=== PATIENT | female | born 1960 | race African-American/Black ===

== ENCOUNTER → 2016-09-29 | Outpatient (CLI) | payer OTHER ==
[~2016-09-29] MED LIST: ASPIRIN EC325 M1 PO; BACTRIM DS TAB1 EACH PO; BENICAR HCT 401 EACH PO; CIPRO500 MG PO; DIOVAN 80 MG TA80 M1 PO; FLAGYL500 MG PO; IBUPROFEN 800800 MG PO; LIPITOR 10 MG10 M1 PO; LIPITOR10 MG PO; NORCO 5-325 TA1 EACH PO; NORFLEX100 MG PO; ONDANSETRON HCL4 M2 PO; PEPCID AC20 M1 PO; PERCOCET 5-3251 EACH PO; TRAMADOL 50 MG50 MG PO; UNKNOWN BP MED; ZOFRAN ODT4 MG PO; [UNRECOGNIZED DRUG - REMARK]
== END ==
LOC: RAD 12:41
DX: R07.9 Chest pain, unspecified (principal)

== ENCOUNTER → 2017-02-28 | Outpatient (CLI) | payer OTHER | LOC: RAD 10:35 | DX: Z12.31 Encounter for screening mammogram for malignant neoplasm of breast (principal) ==

== ENCOUNTER → 2017-05-25 | Outpatient (CLI) | payer OTHER | LOC: RAD 15:59 | DX: M51.36 Other intervertebral disc degeneration, lumbar region (principal); M43.16 Spondylolisthesis, lumbar region; M46.86 Other specified inflammatory spondylopathies, lumbar region; M25.78 Osteophyte, vertebrae ==

== ENCOUNTER → 2017-12-28 | Outpatient (CLI) | payer OTHER | LOC: RAD 14:21 | DX: Z12.31 Encounter for screening mammogram for malignant neoplasm of breast (principal); I10 Essential (primary) hypertension; E78.5 Hyperlipidemia, unspecified ==

== ENCOUNTER → 2019-05-29 | Outpatient (CLI) | payer OTHER | LOC: RAD 14:32 | DX: Z12.31 Encounter for screening mammogram for malignant neoplasm of breast (principal); N63.10 Unspecified lump in the right breast, unspecified quadrant ==

== ENCOUNTER → 2019-07-01 | Outpatient (CLI) | payer OTHER | LOC: ULTRA 12:38 | PROVIDERS: ATTEND Nurse Practitioner | DX: N64.89 Other specified disorders of breast (principal) ==

== ENCOUNTER → 2019-08-04 | Outpatient (CLI) | payer OTHER | LOC: SJCVCIMAG 12:09 | DX: R07.9 Chest pain, unspecified (principal); I10 Essential (primary) hypertension; E78.00 Pure hypercholesterolemia, unspecified; E11.9 Type 2 diabetes mellitus without complications; R53.83 Other fatigue ==

== ENCOUNTER → 2019-11-25 | Outpatient (CLI) | payer OTHER | LOC: LAB 07:34 | PROVIDERS: ATTEND Nurse Practitioner | DX: R05 Cough (principal); R51 Headache; Z20.828 Contact with and (suspected) exposure to other viral communicable diseases ==

== ENCOUNTER → 2020-08-24 | Outpatient (CLI) | payer OTHER | LOC: RAD 10:18 | PROVIDERS: ATTEND Nurse Practitioner | DX: Z12.31 Encounter for screening mammogram for malignant neoplasm of breast (principal) ==

== ENCOUNTER → 2020-11-30 | Outpatient (CLI) | payer OTHER | LOC: CAT 08:14 | PROVIDERS: ATTEND Internal Medicine Cardiovascular Disease | DX: Z13.6 Encounter for screening for cardiovascular disorders (principal); I25.10 Atherosclerotic heart disease of native coronary artery without angina pectoris; E78.00 Pure hypercholesterolemia, unspecified ==

== ENCOUNTER → 2021-03-03 | Outpatient (CLI) | payer OTHER | LOC: SJCVCIMAG 08:44 | PROVIDERS: ATTEND Internal Medicine Cardiovascular Disease | DX: I10 Essential (primary) hypertension (principal); E78.5 Hyperlipidemia, unspecified ==

== ENCOUNTER → 2021-03-30 | Outpatient (CLI) | payer OTHER | LOC: ULTRA 08:04 | PROVIDERS: ATTEND Nurse Practitioner | DX: R74.8 Abnormal levels of other serum enzymes (principal); K76.0 Fatty (change of) liver, not elsewhere classified ==